=== PATIENT | male | born 1960 | race Two or more races ===

== ENCOUNTER 2018-06-01 11:02 | Outpatient (CLI) | payer OTHER ==
[~2018-06-01 11:02] MED LIST: ATACAND16 MG; CIPRO500 MG; FLAGYL500MG; PROTONIX40 MG; TRILIPIX45 MG
== END 2018-06-01 11:17 | disposition home or self-care (01) ==
LOC: SONOGRAMA 11:02
DX: M79.652 Pain in left thigh (principal)

== ENCOUNTER 2021-04-17 01:54 | Emergency (ER) | payer OTHER ==
[~2021-04-17] VITALS: Ht 175.3 cm; Wt 79.4 kg
[2021-04-17] MEDS ORDERED: SKELAXIN800 MG PO (04:19)
[2021-04-17] MEDS ORDERED: LIDOPATCH1 EACH TOP (04:19)
== END 2021-04-17 04:31 | disposition home or self-care (01) ==
LOC: ER 01:54
DX: M54.42 Lumbago with sciatica, left side (principal); M54.5 Low back pain

== ENCOUNTER 2022-03-18 11:06 | Outpatient (CLI) | payer OTHER ==
[~2022-03-18 11:06] MED LIST changes: +LIDOPATCH1 EACH TOP; +SKELAXIN800 MG PO
== END 2022-03-18 11:19 | disposition home or self-care (01) ==
LOC: RAD 11:06
PROVIDERS: ATTEND Internal Medicine
DX: R05.9 Cough, unspecified (principal); J32.9 Chronic sinusitis, unspecified

== ENCOUNTER 2022-06-04 11:29 | Outpatient (CLI) | payer OTHER | END 2022-06-04 11:37 | disposition home or self-care (01) | LOC: SONOGRAMA 11:29 | PROVIDERS: ATTEND Orthopaedic Surgery | DX: S83.242A Other tear of medial meniscus, current injury, left knee, initial encounter (principal); Z13.83 Encounter for screening for respiratory disorder NEC ==

== ENCOUNTER 2025-03-07 05:20 | Day surgery (SDC) | payer OTHER ==
[2025-03-02 14:18] VITALS: BP 151/78
[2025-03-05 13:33] LABS: PROTHROMBIN TIME 10.9 SECONDS (9.0-11.5)
[~2025-03-07] VITALS: Ht 175.3 cm; Wt 81.6 kg
[~2025-03-07 05:20] MED LIST changes: +CLONAZEPAM0.5 MG PO; +FENOFIBRATE150 MG PO; +FLURBIPROFEN100 MG PO; +LIPITOR20 MG PO; +TOLTERODINE TART4 MG PO; +UROXATRAL10 MG PO
[2025-03-07] MEDS ORDERED: CEFAZOLIN SODIUM 1,000 MG VIAL ONE (07:00)
[2025-03-07] MEDS ORDERED: ONDANSETRON HCL 2 MG/ML VIAL ONE (11:20)
[2025-03-07] MEDS ORDERED: ONDANSETRON HCL 2 MG/ML VIAL IV ONE (11:25)
== END 2025-03-07 14:20 | disposition home or self-care (01) ==
LOC: CIR.AMB 05:20
PROVIDERS: ATTEND Surgery
DX: K42.0 Umbilical hernia with obstruction, without gangrene (principal); Z91.038 Other insect allergy status